=== PATIENT | male | born 1980 | race African-American/Black ===

== ENCOUNTER 2019-06-17 04:52 | Emergency (ER) | payer MEDICAID ==
[~2019-06-17] VITALS: Ht 182.9 cm; Wt 95.5 kg
== END 2019-06-17 05:47 | disposition home or self-care (01) ==
LOC: ED 05:36
DX: F41.1 Generalized anxiety disorder (principal); F15.10 Other stimulant abuse, uncomplicated; F60.0 Paranoid personality disorder
CPT/HCPCS: 99284